=== PATIENT | female | born 1985 | race Two or more races ===

== ENCOUNTER 2025-04-09 08:42 | Emergency (ER) | payer MEDICAID ==
[~2025-04-09] VITALS: Ht 157.5 cm; Wt 54.9 kg
[2025-04-09] MEDS: MECLIZINE HCL 25 MG TABLET PO ONE (09:00)
[2025-04-09 09:30] LABS: PLATELET COUNT (AUTO) 202 K/uL (150-450); RED BLOOD CELL COUNT(AUTO) 4.95 MIL/uL (4.0-5.2); RED CELL DISTRIBUTION WIDTH 13.8 % (11.5-15.0); WHITE BLOOD COUNT (AUTO) 8.7 K/uL (4.3-11.0)
[2025-04-09] MEDS ORDERED: MECLIZINE HCL 25 MG TABLET ONE (09:39)
[2025-04-09] MEDS ORDERED: LORAZEPAM INJ 2 MG/ML VIAL ONE (09:39)
[2025-04-09 09:49] LABS: CALCIUM, SERUM 8.6 mg/dL (8.5-10.1); CREATININE 0.6 mg/dL (0.6-1.3); SODIUM SERUM 140.0 mmol/L (136-145); UREA NITROGEN, BLOOD 15.0 mg/dL (7-18)
[2025-04-09] MEDS: LORAZEPAM INJ 2 MG/ML VIAL IV ONE (09:58)
[2025-04-09] MEDS: IV NS 0.9% 1,000 ML BAG IV ONE (09:59)
[2025-04-09] MEDS ORDERED: MECL-159 PO (10:04)
[2025-04-09 11:15] VITALS: BP 111/66; TEMP 98.5; O2SAT 99
== END 2025-04-09 11:16 | disposition home or self-care (01) ==
LOC: ER 08:45
DX: H81.10 Benign paroxysmal vertigo, unspecified ear (principal); R10.2 Pelvic and perineal pain; Z60.2 Problems related to living alone
CPT/HCPCS: 99284; 96374; 96361; 93005; 85025; 80048; 36415; 84702; J8597; J2060; J7030